=== PATIENT | female | born 1945 | race Caucasian/White ===

== ENCOUNTER 2022-08-11 18:03 | Observation (INO) ==
[2022-08-11] MEDS ORDERED: SODIUM CHLORIDE 0.9% 500 ML IV ONE (18:33)
[2022-08-11] MEDS ORDERED: dilTIAZem HCl 5 MG/ML 5 ML VIAL IV STA (18:33)
[2022-08-11] MEDS ORDERED: MAGNESIUM SULFATE / D5W 1 GM/100 ML BAG IV STA (18:33)
--- NOTE | 2022-08-11 18:42 | Emergency Department Note ---
Impression & Plan Atrial fibrillation with rapid ventricular response, New onset a-fib, Abnormal EKG ED Provider Note NAME: PARAM ARMENDARIZ AGE: 77 SEX: F : 1945 ARRIVES VIA: Walk-In INFORMANT: Patient, ED PROVIDER(S): Jaylan Knight DO CHIEF COMPLAINT: Palpitations HPI: The patient is a 77-year-old female who presented to the emergency department for an evaluation of palpitations. The patient has no cardiac history in the past. She does not take any chronic medications. The patient states over the last 48 hours she has had nausea and general malaise. The patient denies having any leg swelling. She denies having any difficulty breathing at this time. She notices that her heart is racing. The patient has had no trauma. She is from [place] and is visiting the area. ROS: See above HPI for pertinent positives & negatives. A total of 10 systems reviewed and were otherwise negative. PAST MEDICAL HISTORY: See Below PAST SURGICAL HISTORY: See Below FAMILY HISTORY: See Below SOCIAL HISTORY: See Below HOME MEDICATIONS: See Below ALLERGIES: See Below VITALS: See Below PHYSICAL EXAMINATION: GENERAL: The patient is awake and alert. The patient is somewhat anxious appearing. EYES: The conjunctivae are clear. The pupils are round and reactive. EARS, NOSE, MOUTH AND THROAT: The nose is without any evidence of any deformity. NECK: The neck is nontender and supple. RESPIRATORY: Normal respiratory effort is noted there is no evidence of wheezing rhonchi or rales CARDIOVASCULAR: Tachycardic and regular heart sounds were noted to auscultation. There is no definite murmur. GASTROINTESTINAL: The abdomen is soft. Abdomen is nontender. MUSCULOSKELETAL/EXTREMITIES: There is no evidence of gross deformity full range of motion is noted in the hips and shoulders. SKIN: There is no obvious evidence of any rash. There are no petechiae, pallor or cyanosis noted. NEUROLOGIC: Patient is awake alert and oriented x3 MEDICAL DECISION MAKING: The patient is a 77-year-old female who presented to the emergency department for an evaluation of palpitations. The patient was found to be in atrial fibrillation with RVR. The patient had diffuse ST segment abnormalities. I discussed patient's laboratory and radiographic studies with her. She was treated with IV fluids and IV magnesium. She was also given IV Cardizem. On reevaluation her rate was significantly improved. Given that this is her initial episode of atrial fibrillation and the fact that she has no local doctor I [facility] I do feel the patient may benefit from further inpatient work-up and treatment. The patient was agreeable to the plan. Tachycardia. Triage Nursing notes reviewed. Prior medical records reviewed Vital Signs: reviewed and remarkable for tachycardia. Differential diagnosis: Premature contractions, electrolyte abnormality, cardiac dysrhythmia, thyroid dysfunction, pulmonary embolism, infection, gastrointestinal, as well as other pathologies. ER treatment provided: See below Diagnostics interpreted by me: ECG: EKG was obtained in the emergency department. My interpretation is atrial flutter at 153 bpm. Inferior apical and low lateral ST depressions were noted. No previous tracing was available. Cardiac Monitoring: An order was placed for continuous cardiac monitoring. The monitor shows a rate of 103 bpm with atrial fibrillation. Laboratory studies: As stated above and show below. Imaging studies: See below. Radiographic imaging was reviewed by myself Consultation(s): I discussed his case with Devang who [facility]. Past Med/Surg History Surgical History History of bladder suspension procedure History of hysterectomy for benign disease Social History Smoking Status: Never smoker Hx Alcohol Use: Yes Alcohol type: beer, wine and hard liquor Hx Substance Use: No Preferred Language: Polish Communication Ability: Effective Clerk Travel Reservations Required: No Beliefs That Will Affect Care: None Current Living Situation: Spouse Other Information That Helps Us Care for You: No Feels Safe at Home: Yes Safety Concerns: Feels Safe At This Time Assistive Devices: Glasses Allergies Allergies Allergy/AdvReac Type Severity Reaction Status Date / Time No Known Allergies Allergy Unverified 08/11/22 20:05 Home Meds Home Medications Medication Instructions Recorded Confirmed biotin 1 mg tablet 1 mg PO DAILY 08/11/22 08/11/22 calcium carb-ergocalciferol (vit 1 tab PO DAILY 08/11/22 08/11/22 D2) 600 mg calcium-200 unit tablet Results & Data (ED) Vital Signs Vital Signs - 24 hr 08/11/22 18:05 08/11/22 18:40 08/11/22 18:35 Temperature 36.8 C Temperature Source Temporal Artery Scan Pulse Rate 117 H Pulse Rate [Apical] 178 H Pulse Rate from SpO2 Sensor Respiratory Rate 18 18 Respiratory Effort / Characteristics Non-Labored Spontaneous Non-Labored Spontaneous Respiratory Depth Normal Normal Respiratory Pattern Regular Blood Pressure 125/93 Blood Pressure [Right Arm] 121/81 Blood Pressure Mean 103 Blood Pressure Mean [Right Arm] 94 Blood Pressure Position Sitting Pulse Oximetry 96 95 96 Oxygen Delivery Method Room Air Room Air Room Air Sepsis Recent Fever Within 48 Hours No Sepsis New/Unexplained Change in Mental Status No Sepsis Action Taken by Nursing No Action Required 08/11/22 18:46 08/11/22 18:34 08/11/22 18:42 Temperature Temperature Source Pulse Rate 174 H Pulse Rate [Apical] 111 H Pulse Rate from SpO2 Sensor 120 H Respiratory Rate 18 24 Respiratory Effort / Characteristics Non-Labored Spontaneous Respiratory Depth Normal Respiratory Pattern Blood Pressure 82/58 L Blood Pressure [Right Arm] 95/66 L Blood Pressure Mean 66 Blood Pressure Mean [Right Arm] 75 Blood Pressure Position Pulse Oximetry 96 97 Oxygen Delivery Method Room Air Sepsis Recent Fever Within 48 Hours Sepsis New/Unexplained Change in Mental Status Sepsis Action Taken by Nursing 08/11/22 18:42 08/11/22 18:47 08/11/22 18:47 Temperature Temperature Source Pulse Rate 128 H 116 H Pulse Rate [Apical] Pulse Rate from SpO2 Sensor 107 H 87 Respiratory Rate 23 20 Respiratory Effort / Characteristics Respiratory Depth Respiratory Pattern Blood Pressure 95/66 L Blood Pressure [Right Arm] Blood Pressure Mean 75 Blood Pressure Mean [Right Arm] Blood Pressure Position Pulse Oximetry 95 96 Oxygen Delivery Method Sepsis Recent Fever Within 48 Hours Sepsis New/Unexplained Change in Mental Status Sepsis Action Taken by Nursing 08/11/22 19:00 08/11/22 19:00 08/11/22 19:30 Temperature Temperature Source Pulse Rate 92 H 134 H Pulse Rate [Apical] Pulse Rate from SpO2 Sensor 91 H 83 Respiratory Rate 29 H 14 Respiratory Effort / Characteristics Respiratory Depth Respiratory Pattern Blood Pressure 109/69 115/61 Blood Pressure [Right Arm] Blood Pressure Mean 82 79 Blood Pressure Mean [Right Arm] Blood Pressure Position Pulse Oximetry 94 96 Oxygen Delivery Method Sepsis Recent Fever Within 48 Hours Sepsis New/Unexplained Change in Mental Status Sepsis Action Taken by Assisted Medications Current Medication List: was personally reviewed by me Laboratory Data Attestation: I reviewed the patient's lab results. 08/11/22 18:35 08/11/22 18:35 Lab Results 08/11/22 08/11/22 08/11/22 Range/Units 18:35 18:35 18:35 WBC 4.97 (4.8-10.8) K/ul RBC 4.71 (4.20-5.40) M/uL Hgb 14.6 (12.0-16.0) g/dl Hct 42.7 (37.0-47.0) % MCV 90.7 (80.0-100.0) fL MCH 31.0 (25.0-34.0) pg MCHC 34.2 (32.0-36.0) g/dL RDW Std Deviation 41.5 (36.4-46.3) fL RDW Coeff of [place] 12.3 (11.5-14.5) % Plt Count 273 (130-400) K/uL MPV 9.3 L (9.4-12.4) fL Immature Gran % (Auto) 0.2 % Neut % (Auto) 68.8 % Lymph % (Auto) 18.1 % [place] % (Auto) 11.1 % Eos % (Auto) 1.4 % Baso % (Auto) 0.4 % Neut # (Auto) 3.42 (1.40-6.50) K/uL Lymph # (Auto) 0.90 L (1.2-3.4) K/uL [place] # (Auto) 0.55 (0.11-0.59) K/uL Eos # (Auto) 0.07 (0-0.50) K/uL Baso # (Auto) 0.02 (0-0.2) K/uL Immature Gran # (Auto) 0.01 (0.01-0.20) K/uL PT 11.0 (9.0-12.0) Seconds INR 1.0 (0.9-1.1) APTT 27.1 (21.0-31.0) Seconds PTT Ratio 1.0 Sodium 137 (136-145) mmol/L Potassium 4.1 (3.5-5.1) mmol/L Chloride 100 (98-107) mmol/L Carbon Dioxide 28 (21-32) mmol/L Anion Gap 9 (3-11) BUN 22 (6-23) mg/dl Creatinine 0.97 (0.6-1.2) mg/dl Est Cr Clr Drug Dosing 37.0 ml/min Est GFR ( Amer) 64.4 ml/min Est GFR (Non-Af Amer) 55.5 ml/min BUN/Creatinine Ratio 22.7 H (10-20) Glucose 121 H (70-99(Fasting)) mg/dl Calcium 9.4 (8.5-10.1) mg/dl Magnesium 1.8 (1.7-2.4) mg/dl Total Bilirubin 0.5 (0.2-1.0) mg/dl AST 23 (13-39) U/L ALT 12 (7-52) U/L Alkaline Phosphatase 59 (34-104) U/L Troponin I High Sens 11.6 (0-14) pg/ml Total Protein 7.3 (6.0-8.3) gm/dl Albumin 4.3 (3.4-5.0) gm/dl Globulin 3.0 (2.5-4.0) gm/dl Albumin/Globulin Ratio 1.4 (0.9-2) TSH (0.300-4.500) uIu/ml SARS-CoV-2, RNA, NAAT (NEGATIVE) 08/11/22 08/11/22 Range/Units 18:35 18:47 WBC (4.8-10.8) K/ul RBC (4.20-5.40) M/uL Hgb (12.0-16.0) g/dl Hct (37.0-47.0) % MCV (80.0-100.0) fL MCH (25.0-34.0) pg MCHC (32.0-36.0) g/dL RDW Std Deviation (36.4-46.3) fL RDW Coeff of [place] (11.5-14.5) % Plt Count (130-400) K/uL MPV (9.4-12.4) fL Immature Gran % (Auto) % Neut % (Auto) % Lymph % (Auto) % [place] % (Auto) % Eos % (Auto) % Baso % (Auto) % Neut # (Auto) (1.40-6.50) K/uL Lymph # (Auto) (1.2-3.4) K/uL [place] # (Auto) (0.11-0.59) K/uL Eos # (Auto) (0-0.50) K/uL Baso # (Auto) (0-0.2) K/uL Immature Gran # (Auto) (0.01-0.20) K/uL PT (9.0-12.0) Seconds INR (0.9-1.1) APTT (21.0-31.0) Seconds PTT Ratio Sodium (136-145) mmol/L Potassium (3.5-5.1) mmol/L Chloride (98-107) mmol/L Carbon Dioxide (21-32) mmol/L Anion Gap (3-11) BUN (6-23) mg/dl Creatinine (0.6-1.2) mg/dl Est Cr Clr Drug Dosing ml/min Est GFR ( Amer) ml/min Est GFR (Non-Af Amer) ml/min BUN/Creatinine Ratio (10-20) Glucose (70-99(Fasting)) mg/dl Calcium (8.5-10.1) mg/dl Magnesium (1.7-2.4) mg/dl Total Bilirubin (0.2-1.0) mg/dl AST (13-39) U/L ALT (7-52) U/L Alkaline Phosphatase (34-104) U/L Troponin I High Sens (0-14) pg/ml Total Protein (6.0-8.3) gm/dl Albumin (3.4-5.0) gm/dl Globulin (2.5-4.0) gm/dl Albumin/Globulin Ratio (0.9-2) TSH 0.816 (0.300-4.500) uIu/ml SARS-CoV-2, RNA, NAAT NEGATIVE (NEGATIVE) Administered Medications Discontinued Medications Diltiazem HCl (Diltiazem Hcl 5 Mg/Ml 5 Ml Vial) 10 mg IV NOW STA Stop: 08/11/22 18:34 Last Admin: 08/11/22 18:39 Dose: 10 mg Documented By: NMS Co-signed By: KHAI Sodium Chloride (Nss) 500 mls @ 999 mls/hr IV .Q31M ONE Stop: 08/11/22 19:03 Last Infusion: 08/11/22 19:05 Dose: 0 mls/hr Documented By: Admin: 08/11/22 18:41 Dose: 999 mls/hr Documented By: ELIZABETH Magnesium Sulfate/Dextrose (Magnesium Sulfate / D5w) 1 gm in 100 mls @ 100 mls/hr IV NOW STA Stop: 08/11/22 19:32 Last Infusion: 08/11/22 19:49 Dose: 0 mls/hr Documented By: Admin: 08/11/22 18:39 Dose: 100 mls/hr Documented By: ELIZABETH Sodium Chloride (Nss 1000ml) 500 mls @ 999 mls/hr IV .Q31M ONE Stop: 08/11/22 19:42 Last Admin: 08/11/22 21:05 Dose: Not Given Documented By: ELS Imaging Data Radiologist's Impression: Chest X-Ray 08/11/22 18:11 XR chest 1V portable HISTORY: Chest pain, nonspecific COMPARISON: None. FINDINGS: The cardiac silhouette is mildly enlarged. There are low lung volumes. The lungs are clear. Mild S-shaped scoliosis is noted. No pleural effusions. No pneumothorax. IMPRESSION: Mild cardiomegaly. ACT 112: Negative or not required by law. Electronically signed by: Esteban Croft M.D. 08/11/2022 7:39 PM Discharge Plan Visit Data Chief Complaint: Cardiac Assessment Stated Complaint: CHEST TIGHTNESS/DISCOMFORT ED Provider: Jaylan Knight Discharge Problem: Atrial fibrillation with rapid ventricular response, New onset a-fib, Abnormal EKG Patient Disposition: Being Evaluated by Hospitalist Discharge Instructions Interventions: ED Discharge Assessment Last Done: 08/11/22 20:44
[2022-08-11 18:54] LABS: Basophils # (auto) 0.02 K/uL (0-0.2); Basophils % (auto) 0.4 %; Eosinophils # (auto) 0.07 K/uL (0-0.50); Eosinophils % (auto) 1.4 %; Hematocrit (blood only) 42.7 % (37.0-47.0); Hemoglobin 14.6 g/dl (12.0-16.0); Immature Granulocytes # (auto) 0.01 K/uL (0.01-0.20); Immature Granulocytes % (auto) 0.2 %; Lymphocytes % (auto) 18.1 %; Mean Corpuscular Hgb Conc 34.2 g/dL (32.0-36.0); Mean Corpuscular Volume 90.7 fL (80.0-100.0); Mean Platelet Volume 9.3 fL (9.4-12.4); Monocytes # (auto) 0.55 K/uL (0.11-0.59); Monocytes % (auto) 11.1 %; Neutrophils # (auto) 3.42 K/uL (1.40-6.50); Neutrophils % (auto) 68.8 %; Platelet Count 273 K/uL (130-400); RDW Coefficient of Variation 12.3 % (11.5-14.5); RDW Standard Deviation 41.5 fL (36.4-46.3); Red Blood Count 4.71 M/uL (4.20-5.40); White Blood Count 4.97 K/ul (4.8-10.8)
[2022-08-11 19:05] LABS: Partial Thromboplastin Time 27.1 Seconds (21.0-31.0)
[2022-08-11] MEDS ORDERED: SODIUM CHLORIDE 0.9% 1000ML 500 ML IV ONE (19:12)
[2022-08-11 19:16] LABS: Albumin Level 4.3 gm/dl (3.4-5.0); Bilirubin,Total 0.5 mg/dl (0.2-1.0); Calcium 9.4 mg/dl (8.5-10.1); Magnesium 1.8 mg/dl (1.7-2.4); Potassium 4.1 mmol/L (3.5-5.1)
[2022-08-11 19:21] LABS: Albumin Globulin Ratio 1.4 (0.9-2); BUN Creatinine Ratio 22.7 (10-20); Est GFR (African American) 64.4 ml/min; Est GFR (Non-African American) 55.5 ml/min; Total Protein 7.3 gm/dl (6.0-8.3)
[2022-08-11 19:26] LABS: Troponin I High Sensitivity 11.6 pg/ml (0-14)
--- NOTE | 2022-08-11 19:40 | XRay Report ---
XR chest 1V portable HISTORY: Chest pain, nonspecific COMPARISON: None. FINDINGS: The cardiac silhouette is mildly enlarged. There are low lung volumes. The lungs are clear. Mild S-shaped scoliosis is noted. No pleural effusions. No pneumothorax. IMPRESSION: Mild cardiomegaly. ACT 112: Negative or not required by law. Electronically signed by: Esteban Croft M.D. 08/11/2022 7:39 PM
--- NOTE | 2022-08-11 20:45 | History & Physical Report ---
Date of Service August 11, 2022 Assessment & Plan (1) New onset a-fib: (2) Atrial fibrillation with rapid ventricular response: Plan New onset Afib with RVR -no prior hx of cardiac, lung disorder -denied any recent surgery or hx of Head trauma or GI bleed -CHADsVasc of 3 -pt received dilt 10mg IV: responded well -will do metoprolol tartrate 25mg BID --- prn IV Lopressor -heparin drip -admit to PCU tele -will obtain echo, trend trop and cardiology consult -initial trop is neg -will get AM EKG, PT/INR, A1C, Lipid panel Diet:Heart healthy DVT PPx:Heparin drip Code Status:FULL CODE Emergency Contact: : Carter [phone] Total time spent: 65 mins History of Present Illness Chief Complaint: palpitation and chest pain Primary Care Provider: Elizabeth Sellers Pt is a 77 y/o F with no significant PMH came into the ER with 1 day hx of intermittent dizziness, palpitation and chest tightness. She had episodes of nausea yesterday but denied any vomiting Denied any hx of [place], CVA, GI bleed, or cardiac structural issues. Denied any hx of smoking but drink 1.5 glasses of wine daily. Denied any recent hx of URI or any other type of infection. Pt lives in [place] but visiting family in [place]. Allergies Allergy/AdvReac Type Severity Reaction Status Date / Time No Known Allergies Allergy Unverified 08/11/22 20:05 Home Medications Medication Instructions Recorded Confirmed Type biotin 1 mg tablet 1 mg PO DAILY 08/11/22 08/11/22 History calcium carb-ergocalciferol (vit 1 tab PO DAILY 08/11/22 08/11/22 History D2) 600 mg calcium-200 unit tablet Past Med/Surg History Surgical History History of bladder suspension procedure History of hysterectomy for benign disease Social History Smoking Status: Never smoker Hx Alcohol Use: Yes Preferred Language: Lithuanian Feels Safe at Home: Yes Review of Systems Review of Systems: At least 10 Review of systems were reviewed and all negative except as indicated in HPI Physical Exam Physical Exam: General:. NAD, well developed, well nourished, average body habitus HEENT:. Normocephalic and atraumatic, Normal Conjunctiva, EOMI, Sclera is non- icteric Lungs:. No signs of respiratory distress, CTA, no wheezing or crackles Heart:.in afib, no murmur Abdominal:. ND, Soft, NT, normal BS MSK:. No deformities of UE and LE, No leg edema Psych:. AAOx3, normal affect Results & Data Results & Data ([facility]) Vital Signs (Past 12 Hours) Vital Signs Temp Pulse Pulse Resp BP BP Pulse Ox 08/11/22 20:30 109 H 21 133/75 08/11/22 20:28 107 H 14 97 08/11/22 20:28 94/75 L 08/11/22 19:30 134 H 14 115/61 96 08/11/22 19:00 92 H 29 H 94 08/11/22 19:00 109/69 08/11/22 18:47 116 H 20 96 08/11/22 18:47 95/66 L 08/11/22 18:42 128 H 23 95 08/11/22 18:42 82/58 L 08/11/22 18:34 174 H 24 97 08/11/22 18:46 111 H 18 95/66 L 96 08/11/22 18:35 178 H 18 121/81 96 08/11/22 18:40 95 08/11/22 18:05 36.8 C 117 H 18 125/93 96 O2 Del Method 08/11/22 20:30 08/11/22 20:28 08/11/22 20:28 08/11/22 19:30 08/11/22 19:00 08/11/22 19:00 08/11/22 18:47 08/11/22 18:47 08/11/22 18:42 08/11/22 18:42 08/11/22 18:34 08/11/22 18:46 Room Air 08/11/22 18:35 Room Air 08/11/22 18:40 Room Air 08/11/22 18:05 Room Air Laboratory Results Short CBC 08/11/22 Range/Units 18:35 WBC 4.97 (4.8-10.8) K/ul Hgb 14.6 (12.0-16.0) g/dl Hct 42.7 (37.0-47.0) % Plt Count 273 (130-400) K/uL BMP 08/11/22 18:35 Sodium 137 Potassium 4.1 Chloride 100 Carbon Dioxide 28 BUN 22 Creatinine 0.97 Glucose 121 H Calcium 9.4 Liver Function 08/11/22 Range/Units 18:35 Total Bilirubin 0.5 (0.2-1.0) mg/dl AST 23 (13-39) U/L ALT 12 (7-52) U/L Alkaline Phosphatase 59 (34-104) U/L Albumin 4.3 (3.4-5.0) gm/dl Diagnostic Findings Chest X-Ray 08/11/22 18:11 XR chest 1V portable HISTORY: Chest pain, nonspecific COMPARISON: None. FINDINGS: The cardiac silhouette is mildly enlarged. There are low lung volumes. The lungs are clear. Mild S-shaped scoliosis is noted. No pleural effusions. No pneumothorax. IMPRESSION: Mild cardiomegaly. ACT 112: Negative or not required by law. Electronically signed by: Esteban Croft M.D. 08/11/2022 7:39 PM Code Status & VTE Plan VTE Prophylaxis Plan VTE Prophylaxis will be ordered: Yes
[2022-08-11] MEDS ORDERED: HEPARIN SODIUM/DEXTROSE 25,000 UNITS/500 ML BAG IV SCH (21:00)
[2022-08-11] MEDS ORDERED: ACETAMINOPHEN 325 MG TAB PO PRN (21:00)
[2022-08-11] MEDS ORDERED: METOPROLOL TARTRATE 1 MG/ML VIAL IV PRN (21:00)
[2022-08-11] MEDS ORDERED: Heparin IV Adult Wt-Based Standard *NO* Bolus Protocol IV SCH (21:04)
[2022-08-11] MEDS: METOPROLOL TARTRATE 25 MG TAB PO SCH (21:32)
[2022-08-12 03:26] LABS: Basophils # (auto) 0.02 K/uL (0-0.2); Basophils % (auto) 0.5 %; Eosinophils # (auto) 0.18 K/uL (0-0.50); Eosinophils % (auto) 4.3 %; Hematocrit (blood only) 36.3 % (37.0-47.0); Hemoglobin 12.4 g/dl (12.0-16.0); Immature Granulocytes # (auto) 0.01 K/uL (0.01-0.20); Immature Granulocytes % (auto) 0.2 %; Lymphocytes # (auto) 1.14 K/uL (1.2-3.4); Mean Corpuscular Hemoglobin 31.5 pg (25.0-34.0); Mean Corpuscular Hgb Conc 34.2 g/dL (32.0-36.0); Mean Corpuscular Volume 92.1 fL (80.0-100.0); Mean Platelet Volume 9.4 fL (9.4-12.4); Monocytes # (auto) 0.46 K/uL (0.11-0.59); Monocytes % (auto) 10.9 %; Neutrophils # (auto) 2.41 K/uL (1.40-6.50); Neutrophils % (auto) 57.1 %; Platelet Count 245 K/uL (130-400); RDW Coefficient of Variation 12.4 % (11.5-14.5); Red Blood Count 3.94 M/uL (4.20-5.40); White Blood Count 4.22 K/ul (4.8-10.8)
[2022-08-12 03:43] LABS: Albumin Level 3.7 gm/dl (3.4-5.0); Bilirubin,Total 0.4 mg/dl (0.2-1.0); Calcium 8.5 mg/dl (8.5-10.1); Magnesium 1.9 mg/dl (1.7-2.4); Potassium 3.9 mmol/L (3.5-5.1)
[2022-08-12 03:49] LABS: Albumin Globulin Ratio 1.6 (0.9-2); BUN Creatinine Ratio 24.4 (10-20); Chol HDL Ratio 1.7 (0-5); Creatinine Clr Calc Pharmacy 43.8 ml/min; Est GFR (African American) 78.9 ml/min; Est GFR (Non-African American) 68.1 ml/min; Globulin 2.3 gm/dl (2.5-4.0)
[2022-08-12 03:54] LABS: INR 1.1 (0.9-1.1); Partial Thromboplastin Ratio 1.8; Prothrombin Time 11.2 Seconds (9.0-12.0)
[2022-08-12 03:55] LABS: Partial Thromboplastin Time 48.2 Seconds (21.0-31.0)
--- NOTE | 2022-08-12 07:34 | Electrocardiogram Report ---
Test Reason : Blood Pressure : / mmHG Vent. Rate : 153 BPM Atrial Rate : 306 BPM P-R Int : 000 ms QRS Dur : 096 ms QT Int : 322 ms P-R-T Axes : 000 015 079 degrees QTc Int : 514 ms Poor data quality, interpretation may be adversely affected Atrial flutter with 2:1 A-V conduction Low voltage QRS T wave abnormality, consider inferior ischemia Abnormal ECG No previous ECGs available Confirmed by Preet Ku ([id number]) on 08/12/2022 7:34:16 AM Referred By: REFERRED SELF Confirmed By:Esau Ku
[2022-08-12] MEDS: METOPROLOL TARTRATE 25 MG TAB PO SCH (07:54)
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
[2022-08-12] MEDS ORDERED: APIXABAN 5 MG TABLET PO SCH (09:45)
--- NOTE | 2022-08-12 12:09 | Hospitalist Progress Note ---
Date of Service August 12, 2022 Assessment & Plan (1) New onset a-fib: (2) Atrial fibrillation with rapid ventricular response: Plan New onset Afib with RVR -no prior hx of cardiac, lung disorder -denied any recent surgery or hx of Head trauma or GI bleed -CHADsVasc of 3 -pt received dilt 10mg IV at presentation: responded well -trops minimally elevated, likely 2/2 afib rvr. -LDL is 40, A1c is pending. - c/w metoprolol tartrate 25mg BID --Hep drip change to eliquis per cardio --ECHO: pending -c/w telemetry monitoring. -Cardio on board, appreciate recs. f/u cardio as OP for possible stress test. -initial trop is neg Diet:Heart healthy DVT PPx: Eliquis Code Status:FULL CODE Emergency Contact: : Carter [phone] total time spent: 65 minutes. Dispo: teresa renteria, cm aware. likely aparna w/ card clearance. Admission and Anticipated Discharge Date Admission Date: August 11, 2022 Subjective Patient seen and examined at bedside as a follow-up of new onset A. fib, A. fib with RVR. Patient was lying in bed, on room air, NAD, reports no chest pressure while in hospital, reports mild headache, denies dizziness/sore throat/cough/belly pain/changes in her bowel or bladder habits acutely. Patient reports eating okay. Physical Exam Physical Exam: GENERAL: Alert and oriented x3. NAD, on RA. HEENT: No pallor, no icterus. Pupils equal, round and reactive to light. Oral mucosa moist. NECK: No JVD, no neck masses. HEART: S1 and S2 heard. Regular rate and rhythm. No murmur, no gallop. RESPIRATORY SYSTEM: Normal AP diameter. No accessory muscle use. No wheezing, no crackles. ABDOMEN: Soft, bowel sounds present, nontender, no distention. CENTRAL NERVOUS SYSTEM: No facial droop. Speech is clear. Obeys simple comm ands. Moves extremities. EXTREMITIES: No edema, no erythema seen. Results & Data Results & Data ([facility]) Vital Signs (Past 12 Hours) Vital Signs Temp Pulse Pulse Resp BP BP Pulse Ox 08/12/22 11:32 36.6 C 08/12/22 10:00 61 18 92 08/12/22 10:00 121/55 L 08/12/22 09:00 72 15 93 08/12/22 08:00 65 12 108/52 L 91 08/12/22 08:00 99/59 L 08/12/22 07:53 108/52 L 08/12/22 07:53 67 18 92 08/12/22 07:51 66 21 94 08/12/22 07:51 113/60 08/12/22 07:00 68 18 92 08/12/22 08:00 59 L 08/12/22 03:55 36.5 C 64 16 100/52 L 92 08/12/22 01:17 36.5 C 64 20 110/49 L 94 O2 Del Method 08/12/22 11:32 08/12/22 10:00 Room Air 08/12/22 10:00 08/12/22 09:00 Room Air 08/12/22 08:00 Room Air 08/12/22 08:00 08/12/22 07:53 08/12/22 07:53 Room Air 08/12/22 07:51 Room Air 08/12/22 07:51 08/12/22 07:00 Room Air 08/12/22 08:00 08/12/22 03:55 Room Air 08/12/22 01:17 Room Air
--- NOTE | 2022-08-12 13:51 | Communication Note ---
Date of Service: August 12, 2022 Patient reassessed. Her , Carter is at the bedside. She remains in sinus rhythm in the 60s to 70s, with occasional PACs. No additional atrial fibr illation or atrial flutter. Blood pressure well controlled. Denies chest discomfort or abdominal discomfort. She has tolerated her meals well thus far. Recommendations: Stable for discharge from a cardiac perspective on the metoprolol tartrate 25 mg twice daily, Eliquis 5 mg twice daily. I have requested a rebate card for Eliquis from case management. Patient is due to return to [place] tomorrow. She does not have an established relationship with a hand tube bender in [place], but her does. I recommended that they make a call tomorrow to arrange an outpatient follow-up visit with her within 1 to [address]. [address] segment depression noted on her initial EKG at time of presentation with atrial flutter, rapid ventricular sponsor in the 150s, outpatient considerations include proceeding with outpatient stress testing after she has had some time to recover from her acute gastroenteritis and atrial flutter. It was recommended to the patient that before she returns to [place] in a week, that she should come to the hospital and sign a medical records release to obtain her records including her EKG tracings that she can take some back to [place] with her. Questions answered to the patient and satisfaction.
--- NOTE | 2022-08-12 14:10 | Discharge Summary ---
Date of Service August 12, 2022 Admission HPI Per Admitting Provider Pt is a 77 y/o F with no significant PMH came into the ER with 1 day hx of intermittent dizziness, palpitation and chest tightness. She had episodes of nausea yesterday but denied any vomiting Denied any hx of AR, CVA, GI bleed, or cardiac structural issues. Denied any hx of smoking but drink 1.5 glasses of wine daily. Denied any recent hx of URI or any other type of infection. [place] in [place] but visiting family in [place]. Admission Exam Per Admitting Provider General:.NAD, well developed, well nourished, average body habitus HEENT:.Normocephalic and atraumatic, Normal Conjunctiva, EOMI, Sclera is non- icteric Lungs:.No signs of respiratory distress, CTA, no wheezing or crackles Heart:.in afib,no murmur Abdominal:.ND, Soft, NT, normal BS MSK:.No deformities of UE and LE, No leg edema Psych:.AAOx3, normal affect Principal Diagnosis New onset afib Afib rvr Discharge Exam GENERAL: Alert and oriented x3. NAD, on RA. HEENT: No pallor, no icterus. Pupils equal, round and reactive to light. Oral mucosa moist. NECK: No JVD, no neck masses. HEART: S1 and S2 heard. Regular rate and rhythm. No murmur, no gallop. RESPIRATORY SYSTEM: Normal AP diameter. No accessory muscle use. No wheezing, no crackles. ABDOMEN: Soft, bowel sounds present, nontender, no distention. CENTRAL NERVOUS SYSTEM: No facial droop. Speech is clear. Obeys simple commands. Moves extremities. EXTREMITIES: No edema, no erythema seen. Discharge Data Allergies Allergy/AdvReac Type Severity Reaction Status Date / Time No Known Allergies Allergy Unverified 08/11/22 20:05 Consultations 08/11/22 19:41 ED Decision to Admit Stat 08/11/22 21:00 Consult Cardiology Routine Hospital Course (1) New onset a-fib: (2) Atrial fibrillation with rapid ventricular response: Plan 77 yo F was managed for the following while in hospital: New onset Afib with RVR -no prior hx of cardiac, lung disorder -denied any recent surgery or hx of Head trauma or GI bleed -CHADsVasc of 3 -pt received dilt 10mg IV at presentation: responded well -trops minimally elevated, likely 2/2 afib rvr. -LDL is 40, A1c is pending. - c/w metoprolol tartrate 25mg BID and eliquis 5 mg bid per cardio --ECHO: EF 55-60%; gr I diastolic dysfunction. freq PACs noted during echo. -d/w cardio, pt good to be dc per their POV. -f/u cardio as OP for possible stress test. Diet:Heart healthy DVT PPx: Eliquis Code Status:FULL CODE Emergency Contact: : Carter [phone] total time spent: 65 minutes. Dispo: eliquis cost, cm aware. likely aparna w/ card clearance. Patient being discharged home with following instruction at the point of discharge: Follow-up with your primary care physician within 1 week time and likely you will need labs CBC/CMP/magnesium/phosphorus. Follow-up with your renewals specialist in 1 to 4 weeks time upon discharge for your new onset A. fib. You are being discharged on metoprolol and Eliquis. Cardiology evaluated you while you are in the hospital. Take your medications as prescribed. Please make sure that you are able to get your medications today by calling your pharmacy before you leave the hospital so that your treatment continuity is not broken. Home Health Attestation I certify that this patient is under my care and that I, or a physicians printer assistant working with me, had a face to-face encounter that meets the home health [id number] encounter requirements with this patient. The encounter with the patient was in whole, or in part, for the following medical condition, which is the primary reason for home health care (list medical condition): I certify that, based on my findings, the following services are medically necessary home health services: My clinical findings support the need for the above services because: Further, I certify that my clinical findings support that this patient is homebound (i.e. absences from home require considerable and taxing effort and are for medical reasons or jain services or infrequently or of short duration when for other reasons) because: Certification for Home Health Services: Based on the above findings, I certify that this patient is confined to the home and needs intermittent group home care, physical therapy and/or speech therapy or continues to need occupational therapy. The patient is under my care, and I have initiated the establishment of the plan of care. This patient will be followed by a physician who will periodically review the plan of care. Total Time Total Time Spent Total Time Spent (In Minutes): 45 Discharge Plan Discharge Items Patient Disposition: Home - Self-Care Reason For Visit: AFIB Discharge Diagnosis: New onset afib Afib rvr Activity: Resume your previous activity Non-emergency contact: Primary Care Provider Call non-emergency contact if: you have any medication questions and your symptoms worsen Follow-up/Referrals: Elizabeth Sellers [Other] Diet: Heart Healthy and Low Sodium (2gm) Addtl Attending Provider Instructions: Follow-up with your primary care physician within 1 week time and likely you will need labs CBC/CMP/magnesium/phosphorus. Follow-up with your renewals specialist in 1 to 4 weeks time upon discharge for your new onset A. fib. You are being discharged on metoprolol and Eliquis. Cardiology evaluated you while you are in the hospital. Take your medications as prescribed. Please make sure that you are able to get your medications today by calling your pharmacy before you leave the hospital so that your treatment continuity is not broken. Pending Studies at Discharge: No Stand-Alone Forms: My [facility] [employer], Smoking Cessation Medications and DC Order Prescriptions: New Eliquis 5 mg tablet 5 mg PO BID Qty: 60 0RF metoprolol tartrate 25 mg Tablet 25 mg PO BID Qty: 60 0RF Continued Calcium + Vitamin D 600 mg calcium- 200 unit Tablet 1 tab PO DAILY biotin 1 mg Tablet 1 mg PO DAILY Discharge Orders: Discharge Order (Routine); Ordered 08/12/22 Ordered By: Diana Herring Admission Data Admit Date/Time: 08/11/22 20:26 Attending Provider: Diana Herring Admit Provider: Luz Harden Primary Care Provider: Elizabeth Sellers Other Providers: Luz Harden ; José Dean
--- NOTE | 2022-08-12 21:14 | Electrocardiogram Report ---
Test Reason : Blood Pressure : / mmHG Vent. Rate : 059 BPM Atrial Rate : 059 BPM P-R Int : 140 ms QRS Dur : 086 ms QT Int : 390 ms P-R-T Axes : 041 -24 021 degrees QTc Int : 386 ms Sinus bradycardia Otherwise normal ECG When compared with ECG of 11-AUG-2022 18:23, Sinus rhythm has replaced Atrial flutter Vent. rate has decreased BY 94 BPM T wave inversion no longer evident in Inferior leads T wave inversion no longer evident in Lateral leads Confirmed by Preet Ku ([id number]) on 08/12/2022 9:14:44 PM Referred By: REFERRED SELF Confirmed By:Esau Ku
[2022-08-13 07:26] LABS: Estimated Average Glucose 108 mg/dl; Hemoglobin A1C 5.4 % (4.5-5.6)
== END 2022-08-12 15:17 | disposition home or self-care (01) | DRG 310 ==
LOC: ED 18:03 → INTOOBSV 20:26 → 1E 20:26 → SUATTDRO 20:26 → 1E 20:44